=== PATIENT | male | born 1990 | race African-American/Black ===

== ENCOUNTER 2024-03-09 12:19 | Emergency (ER) | payer OTHER ==
[~2024-03-09] VITALS: Ht 175.3 cm; Wt 65.8 kg
[2024-03-09 12:51] VITALS: PULSE 97; RESP 18; TEMP 97.9
[2024-03-09 13:37] LABS: BASOPHILS % 0.4 % (0.0-1.0); EOSINOPHILS # (AUTO) 0.1 (0.0-0.4); EOSINOPHILS % 1.1 % (0.0-6.0); HEMATOCRIT 46.6 % (38.2-49.6); HEMOGLOBIN 15.7 g/dL (14.0-18.0); LYMPHOCYTES % 43.8 % (18.0-39.1); MEAN CORPUSCULAR HEMOGLOBIN 30.3 pg (28-32); MEAN CORPUSCULAR HGB CONC 33.7 g/dL (31-35); MONOCYTES # (AUTO) 0.2 (0.2-0.8); MONOCYTES % 4.2 % (4.4-11.3); NEUTROPHILS # (AUTO) 2.3 (2.1-6.9); NEUTROPHILS % 50.3 % (38.7-80.0); PLATELET COUNT 190 x10e3/uL (140-360); RED BLOOD COUNT 5.18 x10e6/uL (4.3-5.7); RED CELL DISTRIBUTION WIDTH 12.9 % (11.7-14.4); WHITE BLOOD COUNT 4.54 x10e3/uL (4.8-10.8)
[2024-03-09 13:52] LABS: ALBUMIN 4.2 g/dL (3.5-5.0); ALBUMIN/GLOBULIN RATIO 1.3 (0.8-2.0); ANION GAP 16.9 mmol/L (8-16); BILIRUBIN,TOTAL 0.9 mg/dL (0.2-1.2); CALCIUM 9.2 mg/dL (8.4-10.2); CREATININE, SERUM 1.06 mg/dL (0.72-1.25); POTASSIUM 3.9 mmol/L (3.5-5.1); TOTAL PROTEIN 7.5 g/dL (6.5-8.1)
[2024-03-09] MEDS: SODIUM CHLORIDE 0.9% 1000ML 1,000 ML IV ONE (13:58)
[2024-03-09] MEDS: CHLORDIAZEPOXIDE HCL 25 MG CAP PO ONE (13:59)
[2024-03-09 16:23] VITALS: BP 134/78; PULSE 88; RESP 17; O2SAT 100
== END 2024-03-09 16:25 | disposition home or self-care (01) ==
LOC: ER 13:02
DX: R11.2 Nausea with vomiting, unspecified (principal); F10.129 Alcohol abuse with intoxication, unspecified; F41.9 Anxiety disorder, unspecified
CPT/HCPCS: 36415; 80053; 80320; 85025; 93005; 99284; J7030